=== PATIENT | male | born 1970 | race Caucasian/White ===

== ENCOUNTER 2019-12-15 14:12 | Emergency (ER) | payer SELFPAY ==
[2019-12-15 15:22] LABS: Absolute Lymphocytes (CBC) 1.1 K/uL (0.7-4.9); Basophils % 0.1 % (0-1.3); Hematocrit 41.1 % (39.6-49.0); Lymphocytes % 6.6 % (15.3-44.8); MPV 9.5 fL (7.6-11.3); RBC Red Blood Cell Count 4.39 M/uL (4.33-5.43)
[2019-12-15 15:40] LABS: Albumin 3.9 g/dL (3.4-5.0); Bilirubin Direct 0.2 mg/dL (0-0.2); Bilirubin Total 0.7 mg/dL (0.2-1.0); Potassium 4.1 mmol/L (3.5-5.1); Protein, Total 7.7 g/dL (6.4-8.2)
--- NOTE | 2019-12-15 16:04 | RAD REPORT ---
EXAM DESCRIPTION: CTAbdomen Pelvis W Contrast - 12/15/2019 3:52 pm CLINICAL HISTORY: Abdominal pain. ABD PAIN COMPARISON: No comparisons TECHNIQUE: Biphasic CT imaging of the abdomen and pelvis was performed with 100 ml non-ionic IV cont rast. All CT scans are performed using dose optimization technique as appropriate and may include automated exposure control or mA/KV adjustment according to patient size. FINDINGS: The lung bases are clear. The liver, spleen, pancreas, adrenal glands and right kidney are within normal limits. Two punctate c aliceal stones are present in the inferior left kidney. Small punctate stone is present the urinary b ladder. No bowel obstruction, free air, free fluid or abscess. The appendix is normal. No evidence of signi ficant lymphadenopathy. No suspicious bony findings. IMPRESSION: Punctate left nephrolithiasis. No significant hydronephrosis. Punctate bladder stone, may have been recently passed.
--- NOTE | 2019-12-15 17:07 | ER ---
Nurse's Notes [facility] Name: Arnie Bob Age: 49 yrs Sex: Male : 1970 Arrival Date: 12/15/2019 Time: 14:17 Bed 28 Private MD: Diagnosis: Unspecified renal colic;Abdominal and pelvic pain Presentation: 12/15 14:35 Presenting complaint: Mother states: severe pain in stomach started today, denies iw vomiting or diarrhea , last BM was this morning was hard , is on suboxone that makes him constipated. Transition of care: patient was not received from another setting of care. Onset of symptoms was December 15, 2019. Risk Assessment: Do you want to hurt yourself or someone else? Patient reports no desire to harm self or others. Initial Sepsis Screen: Does the patient meet any 2 criteria? No. Patient's initial sepsis screen is negative. Does the patient have a suspected source of infection? No. Patient's initial sepsis screen is negative. Care prior to arrival: None. 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 iw Historical: - Allergies: 14:37 No Known Allergies; iw - Home Meds: 14:37 suboxone [Active]; iw - Ebola Screening: : Patient negative for fever greater than or equal to 101.5 degrees Fahrenheit, and additional compatible Ebola Virus Disease symptoms Patient denies exposure to infectious person Patient denies travel to an Ebola-affected area in the 21 days before illness onset No symptoms or risks identified at this time. Screenin:50 Abuse screen: Denies threats or abuse. Denies injuries from another. Nutritional sv screening: No deficits noted. Tuberculosis screening: No symptoms or risk factors identified. Fall Risk None identified. Assessment: 15:00 General: Appears in no apparent distress. comfortable, Behavior is calm, cooperative, sv appropriate for age. Pain: Complains of pain in abdomen Pain currently is 4 out of 10 on a pain scale. Pain began 2-3 days ago. Is intermittent. Neuro: Level of Consciousness is awake, alert, obeys commands, Oriented to person, place, time, situation, Moves all extremities. Full function Gait is steady. Respiratory: Airway is patent Respiratory effort is even, unlabored, Respiratory pattern is regular, symmetrical. GI: Abdomen is flat, non-distended, Reports constipation, Patient currently denies nausea, vomiting. Derm: Skin is pink, warm \T\ dry. 17:10 Reassessment: Patient appears in no apparent distress at this time. Patient is alert, ca1 oriented x 3, equal unlabored respirations, skin warm/dry/pink. Vital Signs: 14:37 BP 113 / 69; Pulse 56; Resp 16; Temp 97.5; Pulse Ox 100% ; Weight 65.77 kg; Height 5 iw ft. 6 in. (167.64 cm); Pain 4/10; 16:01 BP 121 / 73; Pulse 67; Resp 18; Pulse Ox 100% ; sv 17:10 BP 116 / 78; Pulse 62; Resp 17 S; Pulse Ox 100% on R/A; ca1 14:37 Body Mass Index 23.40 (65.77 kg, 167.64 cm) iw ED Course: 14:17 Patient arrived in ED. rg4 14:36 Triage completed. iw 14:37 Arm band placed on. iw 14:45 Evie Lim RN is Primary Nurse. sv 14:50 Patient has correct armband on for positive identification. Placed in gown. Bed in low sv position. Call light in reach. Adult w/ patient. Pulse ox on. NIBP on. Door closed. Head of bed elevated. 14:55 Inserted saline lock: 22 gauge in right antecubital area, using aseptic technique. sv ,using aseptic technique. diffusics, done by Nellie WHITNEY Blood collected. 14:58 Tone Dumont, VÍCTOR is [facility]. la1 14:58 Jaime Alvarado MD is Attending Physician. la1 15:53 CT Abd/Pelvis - IV Contrast Only In Process Unspecified. EDMS 15:[address] from [address]. sv 15:56 Awaiting lab results, Awaiting radiology results. sv 17:16 IV discontinued, intact, bleeding controlled, No redness/swelling at site. Pressure ca1 dressing applied. 17:16 No provider procedures requiring assistance completed. sv Administered Medications: No medications were administered Outcome: 17:06 Discharge ordered by . la1 17:16 Discharged to home ambulatory, with family. ca1 17:16 Condition: stable 17:16 Discharge instructions given to patient, Instructed on discharge instructions, follow up and referral plans. Demonstrated understanding of instructions, follow-up care. 17:17 Patient left the ED. ca1 Signatures: Dispatcher [employer] vEie Steward RN Maryann Garza RN RN iw Attema, Lee, LOCATION AND MEASUREMENT TECHNICIAN-C LOCATION AND MEASUREMENT TECHNICIAN-Leah1 Soo Pryor rg4 Nellie Simental RN RN ca1
--- NOTE | 2019-12-15 17:07 | EDPHYS ---
Physician Documentation [facility] Name: Arnie Bob Age: 49 yrs Sex: Male : 1970 Arrival Date: 12/15/2019 Time: 14:17 Bed 28 Private MD: ED Physician Jaime Alvarado HPI: 12/15 15:18 This 49 yrs old Male presents to ER via Wheelchair with complaints of la1 Abdominal Pain. 15:18 The patient presents with abdominal pain in the upper abdomen. Onset: The la1 symptoms/episode began/occurred just prior to arrival. The symptoms do not radiate. Associated signs and symptoms: Pertinent negatives: nausea, vomiting, and diarrhea, fever. The symptoms are described as sharp, stabbing. Modifying factors: The symptoms are alleviated by nothing. Severity of pain: At its worst the pain was severe in the emergency department the pain has improved. The patient has experienced similar episodes in the past. Historical: - Allergies: 14:37 No Known Allergies; iw - Home Meds: 14:37 suboxone [Active]; iw - Ebola Screening: : Patient negative for fever greater than or equal to 101.5 degrees Fahrenheit, and additional compatible Ebola Virus Disease symptoms Patient denies exposure to infectious person Patient denies travel to an Ebola-affected area in the 21 days before illness onset No symptoms or risks identified at this time. ROS: 15:18 Constitutional: Negative for fever, chills, and weight loss, Eyes: Negative for injury, la1 pain, redness, and discharge, ENT: Negative for injury, pain, and discharge, Neck: Negative for injury, pain, and swelling, Cardiovascular: Negative for chest pain, palpitations, and edema, Respiratory: Negative for shortness of breath, cough, wheezing, and pleuritic chest pain. 15:18 Back: Negative for injury and pain, : Negative for injury, bleeding, discharge, and swelling, MS/Extremity: Negative for injury and deformity, Skin: Negative for injury, rash, and discoloration, Neuro: Negative for headache, weakness, numbness, tingling, and seizure. 15:18 Abdomen/GI: Positive for abdominal pain, abdominal cramps, Negative for nausea, vomiting, diarrhea, black/tarry stool, rectal pain, rectal bleeding, bowel incontinence. Exam: 15:19 Constitutional: This is a well developed, well nourished patient who is awake, alert, la1 and in no acute distress. Eyes: Periorbital areas with no swelling, redness, or edema. ENT: Mucous membranes moist. Neck: Trachea midline Chest/axilla: Normal chest wall appearance and motion. Nontender with no deformity. No lesions are appreciated. Cardiovascular: Regular rate and rhythm with a normal S1 and S2. No gallops, murmurs, or rubs. Normal PMI, no JVD. No pulse deficits. Respiratory: Lungs have equal breath sounds bilaterally, clear to auscultation. 15:19 Back: No spinal tenderness. No costovertebral tenderness. Full range of motion. Skin: Warm, dry with normal turgor. Normal color with no rashes, no lesions, and no evidence of cellulitis. Neuro: Awake and alert, GCS 15, oriented to person, place, time, and situation. . Normal gait. 15:19 Abdomen/GI: Inspection: abdomen appears normal, Bowel sounds: normal, in all quadrants, Palpation: abdomen is soft and non-tender, in all quadrants, Indicators: McBurney's point is not tender, Mehta's sign is negative, Rovsing's sign is negative, Obturator sign is negative, Psoas sign is negative. Vital Signs: 14:37 BP 113 / 69; Pulse 56; Resp 16; Temp 97.5; Pulse Ox 100% ; Weight 65.77 kg; Height 5 iw ft. 6 in. (167.64 cm); Pain 4/10; 16:01 BP 121 / 73; Pulse 67; Resp 18; Pulse Ox 100% ; sv 17:10 BP 116 / 78; Pulse 62; Resp 17 S; Pulse Ox 100% on R/A; ca1 14:37 Body Mass Index 23.40 (65.77 kg, 167.64 cm) iw MDM: 14:58 Patient medically screened. la1 17:04 Data reviewed: vital signs, nurses notes, lab test result(s), radiologic studies, and la1 as a result, I will discharge patient. Data interpreted: Pulse oximetry: on room air. 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 12/15 15:06 Order name: Basic Metabolic Panel; Complete Time: 16:14 12/15 15:06 Order name: CBC with Diff; Complete Time: 16:14 12/15 15:06 Order name: Creatinine for Radiology; Complete Time: 16:14 12/15 15:06 Order name: Hepatic Function; Complete Time: 16:14 12/15 15:06 Order name: Lipase; Complete Time: 16:14 12/15 17:01 Order name: Urine Dipstick--Ancillary (enter results) 12/15 15:06 Order name: IV Saline Lock; Complete Time: 15:56 12/15 15:06 Order name: Labs collected and sent; Complete Time: 15:56 12/15 15:06 Order name: CT Abd/Pelvis - IV Contrast Only; Complete Time: 16:14 12/15 16:32 Order name: Urine Dipstick-Ancillary (obtain specimen); Complete Time: 16:43 la Administered Medications: No medications were administered Disposition: 12/15/19 17:06 Discharged to Home. Impression: Unspecified renal colic, Abdominal and pelvic pain. - Condition is Stable. - Discharge Instructions: Kidney Stones, Renal Colic, Kidney Stones, [id number], Abdominal Pain, Adult, [id number]. - Medication Reconciliation Form, Thank You Letter form. - Follow up: Private Physician; When: As needed; Reason: Recheck today's complaints, Re-evaluation by your physician. - Problem is new. - Symptoms have improved. Addendum: 12/17/2019 19:43 Co-signature as Attending Physician, Jaime Alvarado MD. r n Signatures: Dispatcher [employer] Maryann Pena RN RN iw Nieto, Roman, MD MD rn Tone Dumont, HEALTH CLAIMS EXAMINER-C HEALTH CLAIMS EXAMINER-Cla1 Nellie Simental RN RN ca1 Corrections: (The following items were deleted from the chart) 12/15 17:17 17:06 12/15/2019 17:06 Discharged to Home. Impression: Unspecified renal colic; ca1 Abdominal and pelvic pain. Condition is Stable. Forms are Medication Reconciliation Form, Thank You Letter, Antibiotic Education, Prescription Opioid Use. Follow up: Private Physician; When: As needed; Reason: Recheck today's complaints, Re-evaluation by your physician. Problem is new. Symptoms have improved. la1
[2019-12-15 17:23] VITALS: TEMP 97.5; O2SAT 100
[2019-12-15 17:26] VITALS: BP 116/78
[2019-12-15 17:34] LABS: Urine Blood 1+ (NEG); Urine Glucose NEGATIVE (NEG); Urine Protein NEGATIVE (NEG); Urine Specific Gravity <1.005 (1.005-1.030); Urine pH 5.5 (5.0-7.0)
== END 2019-12-15 17:17 | disposition home or self-care (01) ==
LOC: ER 14:12
DX: N23 Unspecified renal colic (principal)
CPT/HCPCS: 36415; 74177; 80048; 80076; 81003; 83690; 85025; 99284; Q9967